=== PATIENT | male | born 1975 | race Caucasian/White ===

== ENCOUNTER → 2016-06-27 | Outpatient (CLI) | payer BC, OTHER | END | disposition home or self-care (01) | LOC: GMAB 16:29 | PROVIDERS: ATTEND Family Medicine | DX: Z00.00 Encounter for general adult medical examination without abnormal findings (principal); K21.9 Gastro-esophageal reflux disease without esophagitis ==

== ENCOUNTER → 2016-07-08 | Outpatient (CLI) | payer OTHER ==
--- NOTE | 2016-07-09 16:47 | US ---
History: Gastroesophageal reflux. Abdominal pain. Right upper quadrant ultrasound: The liver is of diffusely increased echogenicity. No focal abnormality is seen. No intrahepatic ductal dilatation. The common duct is normal and measures 3 to 4 mm. The gallbladder is unremarkable. No significant stone, wall thickening or surrounding edema. Visualized pancreas is normal. Visualized aorta, IVC are unremarkable. The right kidney appears normal although its length is not documented. IMPRESSION: Moderate fatty infiltration of the liver. Electronically signed by: Dorothy Monroy MD 07/09/2016 4:46 PM CDT
== END | disposition home or self-care (01) ==
LOC: US 13:03
PROVIDERS: ATTEND Family Medicine
DX: K21.9 Gastro-esophageal reflux disease without esophagitis (principal); K76.0 Fatty (change of) liver, not elsewhere classified

== ENCOUNTER → 2016-08-22 | Outpatient (CLI) | payer OTHER | END | disposition home or self-care (01) | LOC: GMAB 17:03 | PROVIDERS: ATTEND Family Medicine | DX: R94.5 Abnormal results of liver function studies (principal) ==

== ENCOUNTER 2017-05-30 10:20 | Emergency (ER) | payer OTHER ==
[2017-05-30 10:35] VITALS: TEMP 97.3
[2017-05-30] MEDS ORDERED: AMOXICILLIN & POT CLAVULANATE 875 MG TAB PO ONE (11:04)
--- NOTE | 2017-05-30 11:07 | ED.PDOC ---
History of Present Illness - General Chief Complaint: Eye Problems Stated Complaint: left eye pain Time Seen by Provider: 05/30/17 10:31 Source: patient Exam Limitations: no limitations - History of Present Illness Initial Comments: the patient is a 42-year-old male presenting to the emergency room after having fallen last night and hit the side of his head on the arm of the couch. He simply tripped and fell. After that he had some pain around the left eye and some difficulty with double vision. The patient went to an public area attendant this morning who did an evaluation indicating normal pressures in the eye, no evidence of any intraorbital hemorrhage, and normal monocular visual acuity. The patient does have limitations with movement of his left eye as well as pain with those movements. He also has some palpable subcutaneous emphysema around the eye as well as some visible sub conjunctival emphysema. Orbital blowout fracture suspected no other injury. No neck pain. This happened approximately 10 hours ago. No loss of consciousness. He does have discomfort palpation over his leftmaxillary sinus. Severity: severe Improving Factors: nothing Worsening Factors: nothing Associated Symptoms: malaise, nausea/vomiting Allergies/Adverse Reactions: Allergies NO KNOWN ALLERGY Allergy (Verified 05/30/17 10:35) Home Medications: Ambulatory Orders [id number]-Cshd-Fhxipxpamk [Fioricet] 1 ea PO Q8H PRN #21 tab 05/30/17 Amoxicillin & Pot Clavulanate [Augmentin Tab] 875 mg PO BID #14 tab 05/30/17 Review of Systems - Review of Systems Constitutional: States: no symptoms reported EENTM: States: eye pain, blurred vision Respiratory: States: no symptoms reported Cardiology: States: no symptoms reported Gastrointestinal/Abdominal: States: nausea - mild with the double vision Genitourinary: States: no symptoms reported Musculoskeletal: States: no symptoms reported Skin: States: no symptoms reported Neurological: States: headache Endocrine: States: no symptoms reported All other Systems: No Change from Baseline Past Medical History (General) - Patient Medical History Hx Stroke: No Hx Congestive Heart Failure: No Hx Diabetes: No - Vaccination History Hx Influenza Vaccination: No - Social History Hx Tobacco Use: No Family Medical History - Family History Father Family History: Unknown Living Status: Unknown Physical Exam - Physical Exam General Appearance: Alert, No apparent distress Eye Exam: right normal, left other - limited extraocular movements and palpable subcutaneous emphysema Ears, Nose, Throat: hearing grossly normal Neck: full range of motion, supple Respiratory: no respiratory distress, no accessory muscle use Cardiovascular/Chest: normal peripheral pulses, regular rate, rhythm, no edema Peripheral Pulses: radial,right: 2+, radial,left: 2+, dorsalis pedis,right: 2+, dorsalis pedis,left: 2+ Rectal Exam: deferred Extremity: normal range of motion, no pedal edema, normal capillary refill Neurologic: all source analyst II-XII nml as tested - with the exception of above, alert, normal mood/affect, oriented x 3 Skin Exam: normal color Comments: Vital Signs - 24 hr 05/30/17 10:32 Temperature 97.3 F L Pulse Rate [ 64 Left Brachial] Respiratory 16 Rate Blood Pressure 132/82 [Left Arm] O2 Sat by Pulse 97 Oximetry Progress - Progress Progress: 05/30/17 11:33 the patient is a 42-year-old male presenting after a blunt injury to the left side of his head last night. The patient has a inferior orbital wall blowout fracture into the left maxillary sinus with impingement of the inferior rectus muscle. He does have free air behind the globe. The patient is going to see Dr. Cortez at his office this afternoon at 4 PM. The patient is going to be placed on Augmentin twice daily for the next 7 days. He is receiving a tetanus shot here today. He will also be written for Fioricet for as needed use. He is to eat nothing after 1 PM. ER warnings were given for any acute worsening. Departure - Departure Clinical Impression: Fracture of orbital wall Qualifiers: Encounter type: initial encounter Fracture type: closed Qualified Code(s): S02.80XA - Fracture of other specified skull and facial bones, unspecified side , initial encounter for closed fracture Disposition: Discharge to Home or Self Care Condition: Fair Departure Forms: ED Discharge - Pt. Copy, Patient Portal Self Enrollment Instructions: DI for Facial Fracture Diet: regular diet Activity: increase activity as tolerated Referrals: Mehul Deluca MD [Primary Care Provider] - 1-2 Weeks Prescriptions: Qamrwpfezinjv-Dmgs-Abxhndbrwi [Fioricet] 1 ea PO Q8H PRN #21 tab PRN Reason: Pain Amoxicillin & Pot Clavulanate [Augmentin Tab] 875 mg PO BID #14 tab Home Medications: Ambulatory Orders Ojblozpgktulx-Niwr-Wsctexutff [Fioricet] 1 ea PO Q8H PRN #21 tab 05/30/17 Amoxicillin & Pot Clavulanate [Augmentin Tab] 875 mg PO BID #14 tab 05/30/17 Additional Instructions: the patient is a 42-year-old male presenting after a blunt injury to the left side of his head last night. The patient has a inferior orbital wall blowout fracture into the left maxillary sinus with impingement of the inferior rectus muscle. He does have free air behind the globe. The patient is going to see Dr. Cortez at his office this afternoon at 4 PM. The patient is going to be placed on Augmentin twice daily for the next 7 days. He is receiving a tetanus shot here today. He will also be written for Fioricet for as needed use. He is to eat nothing after 1 PM. ER warnings were given for any acute worsening.
[2017-05-30] MEDS ORDERED: TETANUS,DIPHTHERIA,PERTUSSIS 1 EA SYG IM ONE (11:37)
--- NOTE | 2017-05-30 11:46 | CT ---
EXAM DESCRIPTION: Orbits Computed Tomography. CLINICAL HISTORY: Suspected Orbital Fracture. COMPARISON: None Available. TECHNIQUE: Spiral, axial 2.5 mm scans through the maxillofacial bones without contrast. Coronal and sagittal 2.0 mm reconstructions. Coronal and axial 1.25 mm reconstructions with bone algorithm. Total Exam DLP: 205.7 mGy-cm. This exam was performed according to our departmental CT dose-optimization program which includes automated exposure control, adjustment of the mA and/or kV according to patient size and/or use of iterative reconstruction technique; to reduce radiation dose to as low as reasonably achievable (ALARA). FINDINGS: Comminuted fracture of the posterior left orbital floor with depression of the bone fragments into the left maxillary antra. In addition, left orbital contents are migrating into the superior left antrum, most notably the inferior rectus muscle. Significant amount of air can be seen in the mid and anterior left orbit. Air-fluid level in the left antrum. The superior left lamina papyracea is displaced medially. Anterior and lateral maxillary jones are intact. Gloria bullosa in the right middle turbinate. Nasal septum intact with minimal right deviation anteriorly without soft tissue swelling. No nasal bones intact. Right orbit orbital jones in the right maxillary antrum are unremarkable. Temporal bones and zygoma intact bilaterally. IMPRESSION: 1. Comminuted fracture of the inferior wall of the left orbit/roof of the left maxillary antrum with inferior migration of orbital fat and the inferior rectus muscle. Air in the left orbit. Air-fluid/blood level left antrum. 2. Minimal septal deviation not interpreted to be related to trauma. Gloria bullosa in the right middle turbinate. No other fractures. CRITICAL COMMUNICATION: The critical value was discussed directly by phone with Dr. Gigi Carlos at approximately 1115 hours, on May 30, 2017. Electronically signed by: Young Walters MD 05/30/2017 11:45 AM MANAGER LOGISTIC
[2017-05-30 11:54] VITALS: BP 142/93; O2SAT 99
== END 2017-05-30 11:54 | disposition home or self-care (01) ==
LOC: ER 10:20
DX: S02.32XA Fracture of orbital floor, left side, initial encounter for closed fracture (principal); Z23 Encounter for immunization; W01.190A Fall on same level from slipping, tripping and stumbling with subsequent striking against furniture, initial encounter